=== PATIENT | female | born 1950 | race Caucasian/White ===

== ENCOUNTER 2020-02-15 16:22 | Outpatient (CLI) | payer MEDICARE ==
--- NOTE | 2020-02-15 17:12 | XRAY Report ---
PROCEDURE: Cervical Spine 2 View INDICATIONS: NECK PAIN TECHNIQUE: 3 view(s) of the cervical spine were acquired. COMPARISON: None. FINDINGS: Bones: No fractures or dislocations to the T1 level. The lateral masses of C1 appear intact on the odontoid view. No suspicious bony lesions. Moderate to severe spondylitic change. Severe disc heigh t loss at C5-C6 and C6-C7 uncovertebral joint hypertrophy. Multilevel facet arthropathy. Soft tissues: No prevertebral soft tissue swelling. IMPRESSION: Moderate to severe cervical spondylosis. Reviewed by: Pankaj Riley MD on 02/15/2020 5:10 PM [facility] Approved by: Pankaj Riley MD on 02/15/2020 5:10 PM PST Station ID: [id number]
--- NOTE | 2020-02-15 17:13 | XRAY Report ---
PROCEDURE: Shoulder 3 View RT INDICATIONS: FROZEN RIGHT SHOULDER TECHNIQUE: 3 views of the shoulder were acquired. COMPARISON: None. FINDINGS: Bones: No fractures or dislocations. No suspicious bony lesions. Visualized ribs appear intact. C linical humeral joint degenerative arthritis, with a prominent osteophyte at the articular surface of the humeral head. Soft tissues: No suspicious soft tissue calcifications. IMPRESSION: Clinical humeral joint degenerative arthritis. Reviewed by: Pankaj Riley MD on 02/15/2020 5:11 PM [facility] Approved by: Pankaj Riley MD on 02/15/2020 5:11 PM PST Station ID: [id number]
== END 2020-02-15 16:23 | disposition home or self-care (01) ==
LOC: DI.S 16:22
PROVIDERS: ATTEND Internal Medicine
DX: M47.812 Spondylosis without myelopathy or radiculopathy, cervical region (principal); M75.01 Adhesive capsulitis of right shoulder; M19.011 Primary osteoarthritis, right shoulder
CPT/HCPCS: 72040

== ENCOUNTER 2020-03-01 16:25 | Outpatient (CLI) | payer MEDICARE ==
--- NOTE | 2020-03-01 18:34 | MRI Report ---
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 COMPARISON: X-ray cervical spine 02/15/2020. FINDINGS: Image quality: Excellent. Alignment and Curvature: There is straightening and overall reversal of normal cervical curvature. T here is trace anterolisthesis of C3 on C4, C4 on C5, C7 on T1 trace retrolisthesis of C5 on C6, C6 on C7. Bone Marrow: Marrow demonstrates normal overall signal. Spinal Cord: Visualized spinal cord has normal size and signal. No cerebellar tonsillar herniation. Paraspinous Soft Tissues: No paravertebral masses. Prevertebral soft tissues are normal in thicknes s. Discs: Moderate to severe disc desiccation most notable at C5-6 and C6-7. C2-C3: Minimal disc bulge without spinal stenosis or foraminal narrowing. C3-C4: Mild disc bulge without spinal stenosis. Mild to moderate left and minimal to mild right for aminal narrowing with uncovertebral hypertrophy. C4-C5: Mild disc bulge with small posterior central protrusion. No spinal stenosis. Minimal bilatera l foraminal narrowing with uncovertebral hypertrophy. C5-C6: Mild disc bulge with mild to moderate spinal stenosis. Moderate bilateral foraminal narrowing with uncovertebral hypertrophy. C6-C7: Mild disc bulge with moderate to severe spinal stenosis. Moderate to severe bilateral foramin al narrowing, left greater than right with uncovertebral hypertrophy. C7-T1: Mild disc bulge with moderate to severe spinal stenosis. Moderate to severe bilateral foramin al narrowing with uncovertebral hypertrophy. IMPRESSION: 1. Multilevel disc bulges. 2. Multilevel spinal stenosis most severe at C6-7 secondary to disc bulge with contributing effect of reversal cervical curvature. 3. Multilevel foraminal narrowing, moderate to severe at C6-7 and C7-T1 secondary to uncovertebral ar thropathy. Reviewed by: Elli Dorado MD on 03/01/2020 5:32 PM [place] Approved by: Elli Dorado MD on 03/01/2020 5:32 PM [place] Station ID: [id number]
== END 2020-03-01 16:26 | disposition home or self-care (01) ==
LOC: DI 16:25
PROVIDERS: ATTEND Internal Medicine
DX: M50.221 Other cervical disc displacement at C4-C5 level (principal); M47.812 Spondylosis without myelopathy or radiculopathy, cervical region; M48.02 Spinal stenosis, cervical region; M47.813 Spondylosis without myelopathy or radiculopathy, cervicothoracic region; M48.03 Spinal stenosis, cervicothoracic region
CPT/HCPCS: 72141

== ENCOUNTER 2020-07-04 15:55 | Outpatient (CLI) | payer MEDICARE ==
[2020-07-04 16:30] LABS: ALBUMIN/GLOBULIN RATIO 1.1 (1.0-2.2); BILIRUBIN,TOTAL 0.6 mg/dL (0.2-1.0); CREATININE 0.8 mg/dL (0.4-1.0); POTASSIUM 3.7 mmol/L (3.5-5.0); TOTAL PROTEIN 7.7 g/dL (6.7-8.2)
[2020-07-04 20:38] LABS: ESTIMATED AVERAGE GLUCOSE 103 mg/dL (70-100); HEMOGLOBIN A1c% 5.2 % (4.27-6.07)
== END 2020-07-04 15:56 | disposition home or self-care (01) ==
LOC: LAB 15:55
PROVIDERS: ATTEND Psychiatry & Neurology Neurology
DX: G70.00 Myasthenia gravis without (acute) exacerbation (principal)
CPT/HCPCS: 36415; 80053; 81599; 82550; 83036; 83519

== ENCOUNTER 2020-08-02 12:41 | Outpatient (CLI) | payer MEDICARE ==
--- NOTE | 2020-08-02 16:05 | CT Report ---
PROCEDURE: CHEST WO INDICATIONS: Neck pain, thymus eval TECHNIQUE: Noncontrast 5 mm thick sections acquired from the pulmonary apices to the posterior costophrenic angl es. 7 mm thick coronal and sagittal MIP reformats were then acquired. For radiation dose reduction, the following was used: automated exposure control, adjustment of mA and/or kV according to patient size. COMPARISON: FINDINGS: Image quality: Excellent. Lungs and pleura: No acute air space opacities. There is a right posterior costophrenic angle nodul e measuring 6 mm. No pleural effusions or pneumothorax. Central and peripheral airways are patent an d normal in caliber. Mediastinum: Heart size is normal. No pericardial effusion. No mediastinal adenopathy by size crit eria. No evidence of residual thymus. Thoracic aorta and central pulmonary arteries are normal in si ze. Esophagus is normal in caliber. No hiatal hernia. Bones and chest wall: No suspicious bony lesions. No vertebral body compression fractures. No axil mike or supraclavicular adenopathy by size criteria. The thyroid is normal in size. Abdomen: Visualized upper abdominal solid organs and bowel loops appear normal in the absence of con trast. IMPRESSION: 1. No acute process. 2. No evidence of residual thymus. 3. Right posterior lung base nodule. Follow-up is recommended as below. Solid nodules Solitary nodule size: <6 mm * low risk patients: no follow-up needed * high risk patients: optional CT at 12 months Solitary nodule size: 6-8 mm * low risk patients: follow-up at 6-12 months, then consider further follow-up at 18-24 months * high risk patients: initial follow-up CT at 6-12 months and then at 18-24 months if no change Reviewed by: Guanaco Ferreira MD on 08/02/2020 4:04 PM PDT Approved by: Guanaco Ferreira MD on 08/02/2020 4:04 PM PDT Station ID: [id number]
== END 2020-08-02 12:42 | disposition home or self-care (01) ==
LOC: DI 12:41
PROVIDERS: ATTEND Internal Medicine
DX: R91.1 Solitary pulmonary nodule (principal)

== ENCOUNTER 2020-08-06 13:28 | Outpatient (CLI) | payer MEDICARE | END 2020-08-06 23:59 | disposition other institution (70) | LOC: EMS 13:28 | DX: R29.810 Facial weakness (principal); R47.81 Slurred speech | CPT/HCPCS: A0425; A0429 ==